=== PATIENT | female | born 1955 | race Caucasian/White ===

== ENCOUNTER 2018-02-09 14:01 | Emergency (ER) | payer BC ==
--- NOTE | 2018-02-09 14:06 | EDPHY ---
H & P Time Seen by Provider: 02/09/18 14:04 HPI/ROS: CHIEF COMPLAINT: Dyspnea, dry cough HISTORY OF PRESENT ILLNESS: The patient has a history of asthma and presents to the ED via EMS with worsening dyspnea and dry cough that began on Friday. The patient has been using albuterol and Flovent at home without improvement of her symptoms. The patient denies any asymmetric calf pain or swelling. She denies pleuritic chest pain. She denies fever. Patient denies any recent medication changes. She has no history of coronary artery disease. The patient does complain of some anterior chest pressure. The patient reports her dyspnea is moderate in nature. The patient does not use chronic oxygen. She has not been on prednisone for asthma in the past. REVIEW OF SYSTEMS: A comprehensive 10 point review of systems is otherwise negative aside from elements mentioned in the history of present illness. Source: Patient Exam Limitations: No limitations - Medical/Surgical History PMH: Past medical history: Hypertension, asthma Other PMH: htn, hypothyroid, depression, tonsils - Social History Smoking Status: Never smoked - Physical Exam Exam: General Appearance: Alert, no distress Eyes: Pupils equal and round no pallor or injection ENT, Mouth: Mucous membranes moist Respiratory: Mild tachypnea, lungs clear to auscultation bilaterally, decreased breath sounds noted all lung field Cardiovascular: Regular rate and rhythm Gastrointestinal: Abdomen is soft and nontender, no masses, bowel sounds normal Neurological: 5/5 strength all 4 extremities Skin: Warm and dry, no rashes Musculoskeletal: Neck is supple nontender Extremities: No asymmetric calf pain or swelling Psychiatric: Patient is oriented X 3, there is no agitation Constitutional: Initial Vital Signs Temperature (C) 37.1 C 02/09/18 14:06 Heart Rate 84 02/09/18 14:06 Respiratory Rate 16 02/09/18 14:06 Blood Pressure 141/92 H 02/09/18 14:06 O2 Sat (%) 98 02/09/18 14:06 O2 Delivery Mode Nasal Cannula O2 (L/minute) 2 Allergies/Adverse Reactions: Penicillins Allergy (Verified 02/09/18 14:12) Home Medications: Medication Instructions Recorded Aspirin [Aspirin 81mg] 81 mg PO DAILY 11/06/10 HYDROCHLOROTHIAZIDE 0 mg PO 11/06/10 LISINOPRIL 0 mg PO 11/06/10 [place] Carbonate 0 mg PO 11/06/10 Cephalexin [Keflex] 500 mg PO QID #40 cap 02/21/14 [place] 02/21/14 predniSONE [prednisone 20mg (RX)] 3 tab PO DAILY #15 tab 02/09/18 Medical Decision Making - Diagnostics Imaging Results: Imaging Impressions Chest X-Ray 02/09/18 14:10 Impression: Suspect airways disease. No pneumonia or CHF. ED Course/Re-evaluation: The patient presents to the ED with acute dyspnea. The patient is noted to have decreased air movement on exam. The patient's D-dimer is negative which I feel adequately excludes pulmonary embolism. The patient's EKG demonstrates no evidence of ischemia. The patient's chest x-ray demonstrates no evidence of disease. In the emergency department the patient was treated with a DuoNeb, albuterol and given 60 mg of prednisone. Re-evaluated the patient at 4:00 p.m.. She continues to be not hypoxic. She is feeling better. She will be discharged home with a short course of prednisone. She is advised to return to the ED for markedly worsening symptoms or other concerns. The patient's troponin is within normal limits. Differential Diagnosis: Differential diagnosis considered includes asthma, bronchitis, pneumonia, pulmonary embolism, acute coronary syndrome, myocardial infarction - Data Points Laboratory Results: Laboratory Results 02/09/18 14:55 02/09/18 14:01 02/09/18 02/09/18 02/09/18 15:07 14:55 14:01 WBC 3.55 10^3/uL L 10^3/uL (3.80-9.50) RBC 4.34 10^6/uL 10^6/uL (4.18-5.33) Hgb 14.3 g/dL g/dL (12.6-16.3) Hct 40.3 % % (38.0-47.0) MCV 92.9 fL fL (81.5-99.8) MCH 32.9 pg pg (27.9-34.1) MCHC 35.5 g/dL g/dL (32.4-36.7) RDW 12.2 % % (11.5-15.2) Plt Count 162 10^3/uL 10^3/uL (150-400) MPV 9.3 fL fL (8.7-11.7) Neut % (Auto) 63.0 % % (39.3-74.2) Lymph % (Auto) 17.5 % % (15.0-45.0) [place] % (Auto) 14.1 % H % (4.5-13.0) Eos % (Auto) 3.7 % % (0.6-7.6) Baso % (Auto) 1.1 % % (0.3-1.7) Nucleat RBC Rel Count 0.0 % % (0.0-0.2) Absolute Neuts (auto) 2.24 10^3/uL 10^3/uL (1.70-6.50) Absolute Lymphs (auto) 0.62 10^3/uL L 10^3/uL (1.00-3.00) Absolute Monos (auto) 0.50 10^3/uL 10^3/uL (0.30-0.80) Absolute Eos (auto) 0.13 10^3/uL 10^3/uL (0.03-0.40) Absolute Basos (auto) 0.04 10^3/uL 10^3/uL (0.02-0.10) Absolute Nucleated RBC 0.00 10^3/uL 10^3/uL (0-0.01) Immature Gran % 0.6 % % (0.0-1.1) Immature Gran # 0.02 10^3/uL 10^3/uL (0.00-0.10) D-Dimer Sodium Potassium Chloride Carbon Dioxide Anion Gap BUN Creatinine Estimated GFR Glucose Calcium POC Troponin I 0.00 ng/mL ng/mL (0.00-0.08) Troponin I < 0.012 ng/mL ng/mL (0.000-0.034) NT-Pro-B Natriuret Pep 02/09/18 02/09/18 14:01 14:01 WBC RBC Hgb Hct MCV MCH MCHC RDW Plt Count MPV Neut % (Auto) Lymph % (Auto) [place] % (Auto) Eos % (Auto) Baso % (Auto) Nucleat RBC Rel Count Absolute Neuts (auto) Absolute Lymphs (auto) Absolute Monos (auto) Absolute Eos (auto) Absolute Basos (auto) Absolute Nucleated RBC Immature Gran % Immature Gran # D-Dimer < 0.27 ug/mLFEU ug/mLFEU (0.00-0.50) Sodium 136 mEq/L mEq/L (135-145) Potassium 3.9 mEq/L mEq/L (3.3-5.0) Chloride 101 mEq/L mEq/L (97-110) Carbon Dioxide 27 mEq/l mEq/l (22-31) Anion Gap 8 mEq/L mEq/L (8-16) BUN 13 mg/dL mg/dL (7-23) Creatinine 0.7 mg/dL mg/dL (0.6-1.0) Estimated GFR > 60 Glucose 86 mg/dL mg/dL (70-100) Calcium 9.9 mg/dL mg/dL (8.5-10.4) POC Troponin I Troponin I NT-Pro-B Natriuret Pep 53 pg/mL pg/mL (0-125) Medications Given: Discontinued Medications Albuterol (Proventil Neb) 3 ml IH EDNOW ONE Stop: 02/09/18 14:22 Last Admin: 02/09/18 14:36 Dose: 3 ml Albuterol/Ipratropium (Duoneb) 3 ml IH EDNOW ONE Stop: 02/09/18 14:22 Last Admin: 02/09/18 14:36 Dose: 3 ml Prednisone (Prednisone) 60 mg PO EDNOW ONE Stop: 02/09/18 15:09 Last Admin: 02/09/18 15:18 Dose: 60 mg Point of Care Test Results: Chemistry 02/09/18 15:07 POC Troponin I 0.00 ng/mL ng/mL (0.00-0.08) Departure - Departure Disposition: Home, Routine, Self-Care Clinical Impression: Exacerbation of asthma Condition: Good Instructions: Bronchospasm (ED) Additional Instructions: 1. Prednisone as directed for next 5 days. 2. Use albuterol up to every 2 hr as needed. 3. Please return to the ED for markedly worsening symptoms or other concerns. 4. Please follow-up with your primary care provider for a recheck within the week. Referrals: Kristen Goncalves MD [Primary Care Provider] - As per Instructions
[2018-02-09] MEDS ORDERED: IPRATROPIUM/ALBUTEROL 3 ML DEYVIAL IH ONE (14:21)
[2018-02-09] MEDS ORDERED: ALBUTEROL 3 ML DEYVIAL IH ONE (14:21)
--- NOTE | 2018-02-09 14:53 | CPEKG ---
Heart Rate: 80 RR Interval: 750 P-R Interval: 156 QRSD Interval: 78 QT Interval: 388 QTC Interval: 448 P [place]: 11 QRS [place]: 63 T Wave [place]: 53 EKG Severity - BORDERLINE ECG - EKG Impression: SINUS RHYTHM EKG Impression: BORDERLINE R WAVE PROGRESSION, ANTERIOR LEADS Electronically Signed By: Chace Doshi 09-Feb-2018 16:31:33
[2018-02-09] MEDS ORDERED: predniSONE 20 MG TAB PO ONE (15:08)
[2018-02-09 15:09] LABS: PLATELET COUNT 162 10^3/uL (150-400)
[2018-02-09 15:35] VITALS: BP 152/107
== END 2018-02-09 16:12 | disposition home or self-care (01) ==
LOC: EDUNIT# → SUPCPDRO 14:01
DX: J45.901 Unspecified asthma with (acute) exacerbation (principal); I10 Essential (primary) hypertension
CPT/HCPCS: 84484-PO; J7512; J7613